=== PATIENT | male | born 1990 | race Caucasian/White ===

== ENCOUNTER → 2018-09-22 | Outpatient (CLI) | payer OTHER ==
[~2018-09-22] MED LIST: ANTIDEPRESSANT; CEPH500 PO; CODACE30 PO; HYDACE5 PO; RXCODACET PO
== END | disposition home or self-care (01) ==
LOC: LAB EV 10:35 → LAB SHORT 10:35
DX: L08.9 Local infection of the skin and subcutaneous tissue, unspecified (principal)
CPT/HCPCS: 87070; 87205

== ENCOUNTER → 2019-01-09 | Outpatient (CLI) | payer OTHER | END | disposition home or self-care (01) | LOC: PLD 15:20 → LAB SHORT 15:20 | DX: B36.9 Superficial mycosis, unspecified (principal) | CPT/HCPCS: 88305; 88312 ==

== ENCOUNTER 2019-03-27 19:39 | Emergency (ER) | payer OTHER ==
[~2019-03-27] VITALS: Ht 170.2 cm; Wt 63.5 kg
== END 2019-03-27 19:52 | disposition home or self-care (01) ==
LOC: ER 19:39
DX: T16.1XXA Foreign body in right ear, initial encounter (principal); F17.200 Nicotine dependence, unspecified, uncomplicated; Z88.1 Allergy status to other antibiotic agents; Z79.899 Other long term (current) drug therapy; W45.8XXA Other foreign body or object entering through skin, initial encounter
CPT/HCPCS: 69200; 99282-25

== ENCOUNTER 2019-05-06 21:22 | Emergency (ER) | payer OTHER ==
[~2019-05-06] VITALS: Ht 170.2 cm; Wt 63.5 kg
[2019-05-06] MEDS ORDERED: Prednisone20 MG PO (22:02)
[2019-05-06] MEDS ORDERED: IBUP800 PO (22:02)
== END 2019-05-06 22:18 | disposition home or self-care (01) ==
LOC: ER 21:22
DX: M75.51 Bursitis of right shoulder (principal); F17.200 Nicotine dependence, unspecified, uncomplicated; Z88.8 Allergy status to other drugs, medicaments and biological substances
CPT/HCPCS: 73030; 99283-25; A9270

== ENCOUNTER → 2021-10-29 | Outpatient (CLI) | payer OTHER ==
[~2021-10-29] MED LIST changes: +IBUP800 PO; +Prednisone20 MG PO
[2021-10-31 02:08] LABS: CHLAMYDIA TRACHOMATIS, NAA Positive (Negative)
== END | disposition home or self-care (01) ==
LOC: LAB 18:23 → LAB SHORT 18:23
PROVIDERS: Physician Assistant Surgical
DX: Z20.2 Contact with and (suspected) exposure to infections with a predominantly sexual mode of transmission (principal)
CPT/HCPCS: 87491; 87591